=== PATIENT | female | born 1990 | race Caucasian/White ===

== ENCOUNTER 2020-09-28 16:21 | Observation (INO) | payer OTHER ==
[~2020-09-28] VITALS: Ht 162.6 cm; Wt 100.0 kg
[2020-09-28 16:50] LABS: BASO # 0.1 (0.0-0.2); BASO % 0.4 % (0.0-2.0); EOS # 0.1 (0.0-0.7); EOS % 0.4 % (0-4.0); GRAN # 12.9 (1.4-6.5); GRAN % 81.9 % (42.2-75.2); HEMATOCRIT 46.1 % (37.0-47.0); HEMOGLOBIN 15.6 g/dl (12.5-16.0); LYMPH # 1.8 (1.2-3.4); LYMPH % 11.2 % (20.0-51.0); MEAN CELL VOLUME 89 fl (80.0-100.0); MEAN CORPUSCULAR HEMOGLOBIN 30 pg (27.0-31.0); MEAN CORPUSCULAR HGB CONC 34 g/dl (33.0-37.0); MEAN PLATELET VOLUME 10.1 fl (7.4-10.4); MONO # 0.8 (0.1-0.6); MONO % 5.3 % (1.7-9.3); PLATELET COUNT 405 K/mm3 (130-400); RED BLOOD COUNT 5.21 M/mm3 (4.10-5.30); REDCELL DISTRIBUTION WIDTH-CV 12.4 % (11.5-14.5)
[2020-09-28 16:59] LABS: ALBUMIN 4.7 gm/dL (3.5-5.0); BILIRUBIN,TOTAL 0.3 mg/dL (0.0-1.0); CALCIUM 9.1 mg/dL (8.4-10.2); CREATININE, serum 0.8 (0.52-1.25); POTASSIUM 3.9 mmol/L (3.4-5.0); TOTAL PROTEIN 8.1 gm/dL (6.4-8.2)
[2020-09-28 17:00] LABS: C-REACTIVE PROTEIN 0.5 mg/dL (0.0-0.9)
[2020-09-28 18:09] LABS: COLLECTION METHOD CLEAN CATCH
[2020-09-28 18:17] LABS: MUCOUS Present /lpf; PH 6 (5-8); URINE APPEARANCE Hazy; URINE BACTERIA None Seen /hpf; URINE BILIRUBIN Negative (NEGATIVE); URINE BLOOD 3+ (NEGATIVE); URINE COLOR Yellow; URINE GLUCOSE Negative (NEGATIVE); URINE KETONE Trace (NEGATIVE); URINE LEUKOCYTE ESTERASE Negative (NEGATIVE); URINE NITRATE Negative (NEGATIVE); URINE PROTEIN(semi-quant) Negative (NEGATIVE); URINE RBC >50 /hpf; URINE UROBILINOGEN Negative (NEGATIVE)
--- NOTE | 2020-09-28 19:35 | NUR ---
Pt. arrived to the floor via wheelchair. Pt. is A&OX3, assessent complete. Pt. reports pain at a 3 on pain scale to RLQ. INT to rt. AC. Pt. denies further needs.
[2020-09-28] MEDS ORDERED: ZYRTEC5 MG PO (19:38)
[2020-09-28] MEDS ORDERED: NEXPLANON68 MG ID (19:38)
[2020-09-28 19:51] VITALS: BP 155/100; PULSE 77; TEMP 97.8
[2020-09-28 23:16] VITALS: BP 146/87; PULSE 77; TEMP 98.6
[2020-09-29] VITALS (9 sets, daily range): BP systolic 94–150; BP diastolic 49–99; PULSE 72–94; TEMP 97.6–99.1
--- NOTE | 2020-09-29 07:17 | NUR ---
Dr Navarro here to see patient.
--- NOTE | 2020-09-29 08:39 | NUR ---
Pt with c/o nausea and pain. see MAR for medication administration. Pt reports that pain and nausea come in waves. pt sitting at bedside prior to zofran, dry heaves noted. Following zofran pt reports that nausea improved but pain persisted. resting in bed with eyes shut at this time, call light within reach. Pt remains NPO, mouth swabs given for oral cares.
--- NOTE | 2020-09-29 08:47 | NUR ---
Patient alert and oriented, answers questions appropriately. See assessment. Abdomen soft, non tender, non distended. Bowel sounds active x4 quads. +Flatus. C/o RLQ and right flank pain. No other c/o at this time.
--- NOTE | 2020-09-29 09:06 | NUR ---
SOPHIE met with the patient to discuss discharge plan. The patient lives alone in [place]. She states that she moved to [place] in July. She reports independence with ADLs and does not have any DME. The patient does not have a PCP in [place] yet and she was not interested in getting set up with one at this time. She receives her medications from [facility]. The patient does not have a DPOA-HC and she was not interested in completing one at this time. She states that her mother, Tarah (ph#[phone]), lives in [place]. The patient plans to return home upon discharge. No additional needs at this time.
--- NOTE | 2020-09-29 12:12 | NUR ---
200 ML OF YELLOW URINE STRAINED, NO URINE NOTED. PT REPORTS PAIN IS MINIMAL AT THIS TIME. DENIES NAUSEA. sITTING ON EDGE OF BED COMMUNICATING WITH FAMILY ON PHONE. CALL LIGHT WITHIN REACH.
--- NOTE | 2020-09-29 12:27 | NUR ---
PATIENT SIGNS SURGICAL CONSENT. QUESTIONS ANSWERED. PT AWARE OF APPROX TIME TO THE OR.
--- NOTE | 2020-09-29 13:20 | NUR ---
Patient to surgery with surgical staff at this time.
--- NOTE | 2020-09-29 15:41 | NUR ---
Patient returns to room via bed from PACU. Report was given to Bernardo Aranda RN from [facility]. Pt denies nausea or pain at this time. Pt reports hunger, will advance diet as tolerated. call light within reach.
--- NOTE | 2020-09-29 17:47 | NUR ---
DR Navarro here to round on patient, verbal discharge orders received. Pt has voided urine without difficulty, denies nausea or pain, snack and water taken in. Discharge instructions, scripts, education packets, and pt summary reviewed with patient, questions answered. pt instructed to call urology office on 09/30/20 during office hours for her return appt. Pt aware that she may call with any questions following discharge. pt discharges to friends car via w/c, accompanied by MULE OPERATOR at this time.
== END 2020-09-29 17:50 | disposition home or self-care (01) ==
LOC: COL.ER 16:21 → SURG 18:26
PROVIDERS: Physician Assistant; ADMIT Urology
DX: N13.5 Crossing vessel and stricture of ureter without hydronephrosis (principal); N20.1 Calculus of ureter; I10 Essential (primary) hypertension; F17.210 Nicotine dependence, cigarettes, uncomplicated; J30.2 Other seasonal allergic rhinitis; E66.9 Obesity, unspecified; Z68.39 Body mass index [BMI] 39.0-39.9, adult; Z79.899 Other long term (current) drug therapy
CPT/HCPCS: C1726; C1769; C1894; C2617; G0378; J0690; J1100; J1170; J1885; J2270; J2405; J2550; J2704; J3010; J7030; Q9967